=== PATIENT | male | born 1960 | race Caucasian/White ===

== ENCOUNTER 2022-04-20 10:40 | Outpatient (CLI) | payer OTHER | END 2022-04-20 10:41 | disposition home or self-care (01) | LOC: LAB 10:40 | PROVIDERS: ATTEND Dentist Oral and Maxillofacial Surgery | DX: Z01.812 Encounter for preprocedural laboratory examination (principal); K11.5 Sialolithiasis; D10.2 Benign neoplasm of floor of mouth; K12.2 Cellulitis and abscess of mouth; Z20.822 Contact with and (suspected) exposure to COVID-19 ==

== ENCOUNTER 2022-04-21 10:27 | Day surgery (SDC) | payer OTHER ==
[~2022-04-21 10:27] MED LIST: AMPICILLIN/SULBACTAM 3 GM in SODIUM CHLORIDE 0.9% MINIBAG 100 ML IV SCH
[2022-04-21] MEDS ORDERED: LACTATED RINGERS 1,000 ML IV ONE (10:42)
[2022-04-21] MEDS ORDERED: CHLORHEXIDINE GLUCONATE 15 ML UDC PO ONE (11:19)
[2022-04-21] MEDS ORDERED: BUPIVACAINE 0.5% PF 30 ML VIAL ONE (11:34)
--- NOTE | 2022-04-21 11:34 | ANESTHESIA ---
Pre-Anesthesia VS, & Labs - Diagnosis Sialolithiasis, benign neoplasm of floor of mouth - Procedure sialochoplasty,sialolithotomy Vital Signs: Temp Pulse Resp BP Pulse Ox 36.1 C L 78 16 170/104 H 99 04/21/22 10:42 04/21/22 10:42 04/21/22 10:42 04/21/22 10:42 04/21/22 10:42 Height: 5 ft 8 in Weight (kg): 76.9 kg Body Mass Index: 25.7 BMI Classification: Overweight - NPO >8 hours Home Medications and Allergies Home Medications: Ambulatory Orders Ibuprofen [Motrin] 600 mg PO Q6H PRN 04/15/22 Active Medications Ampicillin Sodium/Sulbactam (Sodium 3 gm/ Sodium Chloride) 100 mls @ 200 mls/hr IV ONCE KELSEA Stop: 04/21/22 12:00 Ibuprofen [Motrin] 600 mg PO Q6H PRN 04/15/22 Allergies/Adverse Reactions: Allergies Allergy/AdvReac Type Severity Reaction Status Date / Time No Known Drug Allergies Allergy Verified 04/15/22 08:54 Anes History & Medical History - Anesthetic History Anesthesia Complications: reports: No previous complications - Medical History Cardiovascular: reports: None, Other (VSD repair at age 2) Pulmonary: reports: None Gastrointestinal: reports: GERD Urinary: reports: None Neuro: reports: None Musculoskeletal: reports: None Endocrine/Autoimmune: reports: None Blood Disorders: reports: None Skin: reports: Eczema Smoking Status: Never smoker Psychosocial: reports: No issues indicated History of Cancer?: No - Surgical History Cardiothoracic: reports: Other (VSD repair) Results - EKG Results EKG Comparison: Reviewed EKG Exam General: Alert, Oriented x3, Cooperative, No acute distress Dental: TMJ, Poor dentition Mouth Openin Fingerbreadth Mallampati classification: I Thyromental Distance: 4-6 cm Mental/Cognitive Status: Alert/Oriented X3, Normal for patient Cognitive Status: Within normal limits Plan Anesthesia Type: General Consent for Procedure(s) Verified and Reviewed: Yes Code Status: Attempt Resuscitation ASA classification: 2-Mild systemic disease Is this case an emergency?: No
[2022-04-21] MEDS ORDERED: OXYMETAZOLINE HCL 100 SPRAYS BOTTLE ONE (11:40)
[2022-04-21] MEDS ORDERED: ROCURONIUM 50 MG/5 ML VIAL ONE (11:47)
[2022-04-21] MEDS ORDERED: LIDOCAINE-MPF 2% 5 ML VIAL ONE (11:47)
[2022-04-21] MEDS ORDERED: DEXAMETHASONE 4 MG/ML VIAL ONE ×2 (11:47→12:48)
[2022-04-21] MEDS ORDERED: ONDANSETRON 4 MG/2 ML VIAL ONE (11:47)
[2022-04-21] MEDS ORDERED: fentaNYL 100 MCG/2 ML VIAL ONE (11:49)
[2022-04-21] MEDS ORDERED: MIDAZOLAM 2 MG/2 ML VIAL ONE (11:51)
[2022-04-21] MEDS ORDERED: PROPOFOL 200 MG/20 ML VIAL IVP ONE (11:53)
[2022-04-21] MEDS ORDERED: HYDROmorphone 0.5 MG/0.5 ML SYRINGE IVP PRN (12:12)
[2022-04-21] MEDS ORDERED: fentaNYL 100 MCG/2 ML VIAL IVP PRN (12:12)
[2022-04-21] MEDS ORDERED: MORPHINE 2 MG/ML CARPUJECT IVP PRN (12:12)
[2022-04-21] MEDS ORDERED: NALOXONE 0.4 MG/ML VIAL IVP PRN (12:12)
[2022-04-21] MEDS ORDERED: ONDANSETRON 4 MG/2 ML VIAL IVP PRN (12:12)
[2022-04-21] MEDS ORDERED: ATROPINE ABBOJECT 1 MG/10 ML SYRINGE IVP PRN (12:12)
[2022-04-21] MEDS ORDERED: BUPIVACAINE 0.5% PF 30 ML VIAL SUBQ ONE (12:30)
[2022-04-21] MEDS ORDERED: LACTATED RINGERS 700 ML IV ONE (12:57)
[2022-04-21] MEDS ORDERED: SUGAMMADEX 200 MG/2 ML VIAL IVP ONE (12:59)
[2022-04-21] MEDS ORDERED: LACTATED RINGERS 1,000 ML IV SCH (13:00)
--- NOTE | 2022-04-21 13:21 | OPERATIVE REPORT ---
Operative Report - General Planned Procedure: 1. Sialodocholithectomy Right Malheur's duct 2. Sialodochoplasty right Malheur's duct Pre-Op Diagnosis: Sialodocholithiasis of the R Malheur's duct Procedure Performed: 1. Sialodocholithectomy of the R Keily's duct 2. Sialodochoplasty of the R [place]heur's duct Post Op Diagnosis: Sialodocholithiasis of the R Malheur's duct - Procedure Note Primary Surgeon: Abdirahman Mariano DDS Anesthesia Provider: Karon Patiño Anesthesia Technique: General ET tube (Nasal JAMIR via the R naris) Estimated Blood Loss (mL): 10 Indications: 61 year old male with recurrent swelling of the R submandibular region. Clinical and radiographic examination was consistent with a large calcified stone in the R Malheur's duct obstructing flow of the saliva from the R submandibular salivary gland. It was decided that removal of the stone with sialodochoplasty was indicated. The RBAs of this plan were discussed with the patient, including pain, swelling, bleeding, recurrence of the stone or the obstruction, need for removal of the gland, loss of taste, parasthesia of the to ngue. Adequate time was given to answer all questions and informed consent was obtained. Findings: The patient was brought to the main operating room and placed in a supine position on the operating table. General anesthesia was induced by the anesthesia team and the airway was secured with a nasal JAMIR throught the right naris. The tube was secured to the forehead in the usual fashion. All pressure points were padded and checked. The eyes were protected with tegederms. The patient was prepped and draped in the usual fashion for an intraoral surgical procedure. Local anestheia was acheived with 5cc of 0.5%marcaine. Attention was directed to the R floor of the mouth. Using digital pressure under the R submandibular area the stone was pushed upwards into the floor of the mouth so that it became very apparent. An incision was made over the top of the stone through mucosa only. Blunt dissection was performed deep to the mucosa to protect the lingual nerve. The stone was easily visualized. The duct was encapsulating the stone. A longitudinal incision was made through the duct wall over the stone. The stone was shelled out. The defect that was left behind was irrigated copiously. The lining of the duct was then sewn to the mucosa of the floor of the mouth in a marsupialization technique, placing ten sutures. The defect was then irrigate d copiously and the gland was milked digitally. No additional stones or other proteinaceous material was removed from the duct. The mouth was rinsed free of debris. The throat pack was removed. The pharynx was suctioned. Care of the patient was returned to the anesthesia team. The patient was emerged from anesthesia without incident and extubated. He was transferred to the PACU in stable condition. Complications: None
[2022-04-21] MEDS ORDERED: HYDROmorphone 0.5 MG/0.5 ML SYRINGE ONE ×2 (13:28→13:49)
--- NOTE | 2022-04-21 13:53 | ANESTHESIA POST OP EVALUATION ---
Anesthesia Post Eval - Post Anesthesia Eval Vitals: Last Vital Signs Temp 36.9 C 04/21/22 13:47 Pulse 74 04/21/22 13:47 Resp 14 04/21/22 13:47 BP 185/105 H 04/21/22 13:47 Pulse Ox 94 04/21/22 13:47 CV Function Including HR & BP: Stable Pain Control: Satisfactory Nausea & Vomiting: Negative Mental Status: Baseline Respiratory Status: Airway Patent Hydration Status: Satisfactory Anesthesia Complications: None
[2022-04-21 14:18] VITALS: BP 165/88
== END 2022-04-21 10:28 | disposition home or self-care (01) ==
LOC: SDS 10:27
PROVIDERS: ATTEND Dentist Oral and Maxillofacial Surgery
DX: K11.5 Sialolithiasis (principal); K12.2 Cellulitis and abscess of mouth
CPT/HCPCS: 42335; 42505; A9270; J1170; J7120

== ENCOUNTER 2023-12-20 08:13 | Outpatient (CLI) | payer MEDICARE, OTHER ==
[2023-12-20 08:24] LABS: BASOPHILS % (AUTO) 0.4 %; EOSINOPHILS # (AUTO) 0.2 10^3/uL (0.0-0.7); EOSINOPHILS % (AUTO) 2.1 %; HCT - HEMATOCRIT 48.1 % (42.0-52.0); LYMPHOCYTES # (AUTO) 2.7 10^3/uL (1.5-3.5); LYMPHOCYTES % (AUTO) 38.5 %; MEAN CORPUSCULAR HEMOGLOBIN 29.3 pg (27.0-31.0); MEAN CORPUSCULAR HGB CONC 33.3 g/dL (32.0-36.0); MEAN CORPUSCULAR VOLUME 87.9 fL (80.0-94.0); MEAN PLATELET VOLUME 9.3 fL (7.4-11.4); MONOCYTES # (AUTO) 0.5 10^3/uL (0.0-1.0); MONOCYTES % (AUTO) 7.2 %; NEUTROPHILS # (AUTO) 3.7 10^3/uL (1.5-6.6); NEUTROPHILS % (AUTO) 51.5 %; PLT - PLATELET COUNT 299 10^3/uL (130-450); RED BLOOD COUNT 5.47 10^6/uL (4.70-6.10); RED CELL DISTRIBUTION WIDTH 12.3 % (12.0-15.0); WHITE BLOOD COUNT 7.1 x10^3/uL (4.8-10.8)
[2023-12-20 08:40] LABS: BUN - BLOOD UREA NITROGEN 14 mg/dL (6-20); CALCIUM 9.5 mg/dL (8.5-10.3); CARBON DIOXIDE - CO2 29 mmol/L (21-32); CHLORIDE 104 mmol/L (101-111); CHOL/HDL RATIO 4.4 (<5.0); CHOLESTEROL 191 mg/dL; CREATININE 0.8 mg/dL (0.6-1.3); GFR - MDRD 97 (>89); GLUCOSE 113 mg/dL (74-104); HDL CHOLESTEROL 43 mg/dL; LDL CHOLESTEROL,CALCULATED 129 mg/dL; POTASSIUM 4.3 mmol/L (3.5-4.5); SODIUM 138 mmol/L (135-145); TRIGLYCERIDES 96 mg/dL (48-352); VLDL CHOLESTEROL 19 mg/dL
== END 2023-12-20 08:14 | disposition home or self-care (01) ==
LOC: LAB 08:13
PROVIDERS: ATTEND Internal Medicine
DX: I25.10 Atherosclerotic heart disease of native coronary artery without angina pectoris (principal); I51.9 Heart disease, unspecified
CPT/HCPCS: 36415; 80048; 80061; 83721; 85025

== ENCOUNTER 2024-02-17 08:33 | Outpatient (CLI) | payer MEDICARE, OTHER ==
[2024-02-17 08:41] LABS: BASOPHILS % (AUTO) 0.5 %; EOSINOPHILS # (AUTO) 0.2 10^3/uL (0.0-0.7); EOSINOPHILS % (AUTO) 2.6 %; HCT - HEMATOCRIT 46.7 % (42.0-52.0); HGB - HEMOGLOBIN 15.4 g/dL (14.0-18.0); LYMPHOCYTES % (AUTO) 40.1 %; MEAN CORPUSCULAR HEMOGLOBIN 29.3 pg (27.0-31.0); MEAN CORPUSCULAR VOLUME 88.8 fL (80.0-94.0); MEAN PLATELET VOLUME 9.5 fL (7.4-11.4); MONOCYTES # (AUTO) 0.5 10^3/uL (0.0-1.0); MONOCYTES % (AUTO) 6.5 %; NEUTROPHILS # (AUTO) 3.7 10^3/uL (1.5-6.6); NEUTROPHILS % (AUTO) 50.2 %; PLT - PLATELET COUNT 278 10^3/uL (130-450); RED BLOOD COUNT 5.26 10^6/uL (4.70-6.10); RED CELL DISTRIBUTION WIDTH 12.7 % (12.0-15.0); WHITE BLOOD COUNT 7.4 x10^3/uL (4.8-10.8)
[2024-02-17 08:54] LABS: CALCIUM 9.8 mg/dL (8.5-10.3); CREATININE 0.9 mg/dL (0.6-1.3)
== END 2024-02-17 08:34 | disposition home or self-care (01) ==
LOC: LAB 08:33
PROVIDERS: ATTEND Internal Medicine Cardiovascular Disease
DX: I42.0 Dilated cardiomyopathy (principal)
CPT/HCPCS: 36415; 80048; 85025

== ENCOUNTER 2024-03-20 08:00 | Outpatient (CLI) | payer MEDICARE, OTHER ==
[2024-03-20 20:50] LABS: BASOPHILS % (AUTO) 0.2 %; EOSINOPHILS # (AUTO) 0.1 10^3/uL (0.0-0.7); EOSINOPHILS % (AUTO) 0.4 %; HCT - HEMATOCRIT 43.3 % (42.0-52.0); HGB - HEMOGLOBIN 14.7 g/dL (14.0-18.0); LYMPHOCYTES # (AUTO) 2.6 10^3/uL (1.5-3.5); LYMPHOCYTES % (AUTO) 21.1 %; MEAN CORPUSCULAR HEMOGLOBIN 29.6 pg (27.0-31.0); MEAN CORPUSCULAR HGB CONC 33.9 g/dL (32.0-36.0); MEAN CORPUSCULAR VOLUME 87.3 fL (80.0-94.0); MEAN PLATELET VOLUME 10.3 fL (7.4-11.4); MONOCYTES # (AUTO) 0.8 10^3/uL (0.0-1.0); MONOCYTES % (AUTO) 6.4 %; NEUTROPHILS # (AUTO) 8.9 10^3/uL (1.5-6.6); NEUTROPHILS % (AUTO) 71.6 %; PLT - PLATELET COUNT 270 10^3/uL (130-450); RED BLOOD COUNT 4.96 10^6/uL (4.70-6.10); RED CELL DISTRIBUTION WIDTH 12.9 % (12.0-15.0); WHITE BLOOD COUNT 12.4 x10^3/uL (4.8-10.8)
[2024-03-20 21:02] LABS: ALBUMIN 4.3 g/dL (3.2-5.5); ALBUMIN/GLOBULIN RATIO 1.5 (1.0-2.2); BILIRUBIN,TOTAL 0.6 mg/dL (0.2-1.0); CALCIUM 10.1 mg/dL (8.5-10.3); CREATININE 0.8 mg/dL (0.6-1.3); POTASSIUM 3.8 mmol/L (3.5-4.5); TOTAL PROTEIN 7.2 g/dL (6.4-8.9)
== END 2024-03-20 23:59 | disposition home or self-care (01) ==
LOC: LAB.N 08:00
PROVIDERS: ATTEND Physician Assistant Medical
DX: R10.30 Lower abdominal pain, unspecified (principal); R31.9 Hematuria, unspecified
CPT/HCPCS: 36415; 80053; 85025; 87086

== ENCOUNTER 2024-07-27 09:53 | Outpatient (CLI) | payer MEDICARE, OTHER ==
[2024-07-27 10:24] LABS: CALCIUM 9.3 mg/dL (8.5-10.3); CREATININE 0.8 mg/dL (0.6-1.3); POTASSIUM 4.3 mmol/L (3.5-4.5)
== END 2024-07-27 09:54 | disposition home or self-care (01) ==
LOC: LAB 09:53
PROVIDERS: ATTEND Nurse Practitioner Family
DX: I10 Essential (primary) hypertension (principal)
CPT/HCPCS: 36415; 80048